=== PATIENT | male | born 1970 | race American Indian/Alaskan Native ===

== ENCOUNTER 2020-10-19 10:40 | Emergency (ER) | payer SELFPAY ==
[2020-10-19] MEDS ORDERED: D5W/0.45% NACL 1,000 ML IV SCH (11:00)
--- NOTE | 2020-10-19 11:11 | Emergency Department Report ---
ED General Adult HPI - General Chief complaint: Seizure Stated complaint: SEIZURE PUI?: No Time Seen by Provider: 10/19/20 10:48 Source: patient, EMS (Verbal report received from emergency medical services. EMS documentation not available at time of chart dictation ), RN notes reviewed Mode of arrival: Stretcher Limitations: No Limitations, Physical Limitation - History of Present Illness Initial comments: The patient was evaluated in the emergency department for symptoms described in the history of present illness. He/she was evaluated in the context of the global COVID-19 pandemic, which necessitated consideration that the patient might be at risk for infection with the virus that causes COVID-19. Institutional protocols and algorithms that pertain to the evaluation of patients at risk for COVID-19 are in a state of rapid change based on information released by regulatory bodies including the CDC and federal and state organizations. These policies and algorithms were followed during the patient's care in the emergency department. Please note that these policies, procedures and recommendations changed on a rapid basis. The patient is a 50-year-old gentleman. He is not known to myself previously. He has a history of recreational cannabis consumption. He denies chronic medical conditions. He is brought to the hospital by emergency medical services. The patient states "I do not remember what happened." The patient states he is not having any physical pain. As per verbal report from emergency medical services, patient had a witnessed nontraumatic convulsive event while in bed with his significant other. Apparently, the patient had shaking all over, for an uncertain period of time. EMS states the patient was somewhat hypertensive in the field, with a normal Accu-Chek. Patient states he has never had a seizure or convulsion before that he is aware of. He denies headache, neck pain, chest pain, abdominal pain, shortness of breath, urinary symptoms, focal extremity weakness/numbness, loss of taste or loss of smell. There is no significant family history for convulsions or seizures or epilepsy that he is aware of. He does not take prescription medications currently he feels like he is back to his baseline. -: Sudden Consistency: now resolved Improves with: none Worsens with: none - Related Data Allergies Allergy/AdvReac Type Severity Reaction Status Date / Time No Known Allergies Allergy Unverified 10/19/20 11:00 ED Review of Systems ROS: Stated complaint: SEIZURE Other details as noted in HPI Constitutional: denies: diaphoresis Eyes: denies: eye discharge, vision change ENT: other (Patient reports that he bit his tongue). denies: congestion Respiratory: denies: cough, shortness of breath Cardiovascular: denies: chest pain, syncope Gastrointestinal: denies: abdominal pain, nausea, vomiting, hematemesis, melena, hematochezia Genitourinary: denies: dysuria Musculoskeletal: myalgia Skin: denies: lesions Neurological: confusion (Initially postictal confusion) ED Physical Exam - General Limitations: No Limitations General appearance: alert, in no apparent distress - Head Head exam: Present: atraumatic, normocephalic - Eye Eye exam: Present: normal appearance, PERRL, EOMI, other (Visual acuity intact to finger counting, color perception, reading at a close distance). Absent: nystagmus - ENT ENT exam: Present: normal exam, normal orophraynx, mucous membranes moist, normal external ear exam, other - Neck Neck exam: Present: normal inspection, full ROM. Absent: tenderness, meningismus - Respiratory Respiratory exam: Present: normal lung sounds bilaterally. Absent: respiratory distress, wheezes, rales, rhonchi, stridor, chest wall tenderness - Cardiovascular Cardiovascular Exam: Present: regular rate, normal rhythm, normal heart sounds. Absent: bradycardia, tachycardia, irregular rhythm, systolic murmur, diastolic murmur, rubs, gallop - GI/Abdominal GI/Abdominal exam: Present: soft, normal bowel sounds. Absent: distended, tenderness, guarding, rebound, rigid, pulsatile mass - Rectal Rectal exam: Present: deferred - Extremities Exam Extremities exam: Present: normal inspection, full ROM, other (2+ pulses noted in the bilateral upper and lower extremities. There is no palpable cord. negative Homans sign. Muscular compartments are soft. The pelvis is stable.). Absent: pedal edema, calf tenderness - Back Exam Back exam: Present: normal inspection, full ROM. Absent: tenderness, CVA tenderness (R), CVA tenderness (L), paraspinal tenderness, vertebral tenderness - Neurological Exam Neurological exam: Present: alert, oriented X3, other (No facial droop. Tongue midline. Extraocular movements intact bilaterally. Facial sensation intact to light touch in V1, V2, V3 distribution bilaterally. 5 and a 5 strength in 4 extremities. Sensation intact to light touch in 4 extremities.). Absent: motor sensory deficit - Psychiatric Psychiatric exam: Present: normal affect, normal mood - Skin Skin exam: Present: warm, dry, intact, normal color. Absent: rash ED Course Vital Signs 10/19/20 10/19/20 10/19/20 10:56 11:10 11:40 Temperature 98.9 F Pulse Rate 97 H 70 Respiratory 16 21 19 Rate Blood Pressure 144/90 123/72 [Left] O2 Sat by Pulse 95 100 95 Oximetry - Reevaluation(s) Reevaluation #1: 10/19/20 11:15 Differential diagnosis, including but not limited to: Seizure, electrolyte derangement, cardiac conduction abnormality, intracranial lesion, adverse effect of drug Assessment and plan: 50-year-old gentleman, who is clinically sober at this time, with a GCS of 15, nonfocal motor examination, with first lifetime convulsive event/seizure/other. Place patient on playground monitor, obtain noncontrast CT scan of the brain, appropriate laboratory studies EKG, provide supportive care, and reassess. Suspect that patient experiencing adverse event from cannabis consumption. Reevaluation #2: 10/19/20 13:26 Patient sleeping comfortably at this time, and in no acute distress. Hyerglycemia reviewed and appreciated. Patient also has glucosuria. Patient may have a component of undiagnosed diabetes. Outpatient follow-up for this, diet lifestyle modifications. Chemistry reviewed and appreciated, decreased CO2 likely secondary to convulsive event. Patient will be given fluids and insulin, we will recheck a basic metabolic panel. Neurology consultation pending at this time. Suspect that patient had convulsive event, likely secondary to cannabis consumption. 10/19/20 13:59 Laboratory studies reviewed and appreciated. Neurology recommendations are reviewed and appreciated. They have recommended admission to the hospital for echocardiogram, to evaluate for cardiogenic syncope, and MRI. It is also recommended that anticonvulsive therapy may be deferred at this time. Doubt cardiogenic syncope, patient low risk by Malagasy syncope rule: 0 points Malagasy Syncope Risk Score Low risk 1.9% risk of 30-day serious adverse event Case is presented to the hospital physician, Dr. Castrejon for further management. Patient is amenable to admission. 10/19/20 14:04 ED Medical Decision Making - Lab Data Result diagrams: 10/19/20 11:11 10/19/20 11:11 Vital Signs 10/19/20 10:56 Temperature 98.9 F Pulse Rate 97 H Respiratory 16 Rate Blood Pressure 144/90 [Left] O2 Sat by Pulse 95 Oximetry - EKG Data -: EKG Interpreted by Me EKG shows normal: sinus rhythm Rate: normal - EKG Data When compared to previous EKG there are: previous EKG unavailable 10/19/20 11:26 Sinus rhythm, 67 bpm. Normal axis, normal intervals, motion artifact V2. Abnormal EKG. Not a STEMI. No prior for comparison. - Radiology Data Radiology results: pending, report reviewed, image reviewed Noncontrast CT scan of the brain negative for acute findings. Critical care attestation.: If time is entered above; I have spent that time in minutes in the direct care of this critically ill patient, excluding procedure time. ED Disposition Clinical Impression: Hyperglycemia, Marijuana use, History of convulsions Disposition: OP ADMIT IP TO THIS HOSP Is pt being admited?: Yes Condition: Good Instructions: Preventing Type 2 Diabetes Mellitus, Cannabis Use Disorder, Hyperglycemia, [id number], Seizure, Adult Additional Instructions: Do not drive or operate motor vehicles for 6 months, until cleared to do so by a primary care doctor or neurologist. Recommend immediate discontinuation of marijuana consumption, tobacco consumption, alcohol consumption. Patient found to have elevated blood sugar levels today, suspicious for diabetes. First-line treatment for diabetes will be diet lifestyle modification. Therefore, increase water consumption to 6 cups of water per day, avoid consumption of carbohydrates, sugar, processed foods. Eat plenty of fiber, vegetables and lean protein. Follow-up with your primary care doctor within the next week. Follow-up with a neurologist within the next week. Long-term complications of uncontrolled diabetes include stroke, heart attack, disability, wound, blindness, loss of quality of life. Please return to the emergency room right away with new pain, worsened pain, migration of pain, projectile vomiting, change in mental status, confusion, inability to tolerate liquid feeds, new, worsened or different symptoms not present on the initial emergency room evaluation. Referrals: MAXIMILIANO HADLEY MD [Primary Care Provider] - 3-5 Days STUART AGUSTIN MD [Staff Physician] - 3-5 Days LILLIAN NOLEN MD [Referring] - 3-5 Days [facility] [Provider Group] - 3-5 Days
[2020-10-19 11:25] LABS: Hemoglobin 15.6 gm/dl (11.8-15.2)
[2020-10-19 11:50] LABS: Bilirubin,Urine NEG (Negative); Blood,Urine MOD (Negative); Color,Urine Straw (Yellow); Protein,Urine >500 mg/dL (Negative); Urobilinogen,Urine < 2.0 mg/dL (<2.0); WBC,Urine < 1.0 /HPF (0.0-6.0)
[2020-10-19 12:32] LABS: Amphetamine Screen,Urine Negative; Benzodiazepines Screen,Urine Negative; Cocaine Screen,Urine Negative; Methadone Screen,Urine Negative; Opiate Screen,Urine Negative
[2020-10-19 12:33] LABS: Alanine Aminotransferase 25 units/L (7-56); Albumin 4.8 g/dL (3.9-5); BUN/Creatinine Ratio 8; Blood Urea Nitrogen 10 mg/dL (9-20); Calcium 9.6 mg/dL (8.4-10.2); Hemolysis Index 17
[2020-10-19] MEDS ORDERED: INSULIN REGULAR, HUMAN 100 UNITS/1 ML IV ONE (12:38)
[2020-10-19] MEDS ORDERED: LACTATED RINGERS 1,000 ML IV ONE (12:43)
[2020-10-19 12:52] LABS: Cannabinoid Screen,Urine PRESUMPTIVE POSITIVE
--- NOTE | 2020-10-19 13:08 | Cat Scan Report ---
CT head/brain wo con INDICATION / CLINICAL INFORMATION: 50 years Male; first time sz. TECHNIQUE: Routine CT head without contrast. All CT scans at this location are performed using CT dos e reduction for ALARA by means of automated exposure control. COMPARISON: None. FINDINGS: BRAIN / INTRACRANIAL CONTENTS: No acute hemorrhage, mass effect, midline shift, hydrocephalus, or acu te, large territorial infarct. No signs of significant atrophy or chronic infarct. No significant whi te matter abnormality seen. CRANIOCERVICAL JUNCTION: No significant abnormality. ORBITS: No significant abnormality of visualized orbits. SINUSES / MASTOIDS: Visualized paranasal sinuses and mastoid air cells are essentially clear. ADDITIONAL FINDINGS: None. IMPRESSION: 1. No focal mass, hemorrhage, hydrocephalus, or acute, large territorial infarct. Signer Name: Andriy Cuello MD, III Signed: 10/19/2020 1:04 PM Workstation Name: [id number]
--- NOTE | 2020-10-19 13:59 | Emergency Department Report ---
HPI - General Chief Complaint: Seizure PUI?: No Time Seen by Provider: 10/19/20 10:48 - HPI HPI: [facility] Date of Service: 10/19/2020 12:58:26 Impression: G93.49 - Encephalopathy Multifactorial Comments/Sign-Out: Pt is morbidly obese, she is on a non breather currently, she is encephalopathic and generally weak. The face has a ? drop. Metrics: Last Known Well: 10/19/2020 08:00:58 [facility] Notification Time: 10/19/2020 12:57:58 Arrival Time: 10/19/2020 13:02:24 Stamp Time: 10/19/2020 12:58:26 Time First Login Attempt: 10/19/2020 13:00:28 Symptoms: AMS NIHSS Start Assessment Time: 10/19/2020 13:18:11 Patient is not a candidate for Alteplase/Activase. Alteplase Medical Decision: 10/19/2020 13:18:15 Patient was not deemed candidate for Alteplase/Activase thrombolytics because of Last Well Known Above 4.[address] head showed no acute hemorrhage or acute core infarct. Lower Likelihood of Large Vessel Occlusion but Following Stat Studies are Re commended CTA Head and Neck. CT Perfusion. Advanced Imaging to be Reviewed by ED Provider and FRANCO. Radiologist was not called back for review of advanced imaging because NA ED Physician notified of diagnostic impression and management plan on 10/19/2020 13:29:08 Our recommendations are outlined below. Recommendations: Activate Stroke Protocol Admission/Order Set Stroke/Telemetry Floor Neuro Checks Bedside Swallow Eval DVT Prophylaxis IV Fluids, Normal Saline Head of Bed 30 Degrees Euglycemia and Avoid Hyperthermia (PRN Acetaminophen) Cont Eliquis Recommended Scan: MRI Head Without Contrast MRA Head and Neck Without Contrast When Available - Stroke Protocol Echocardiogram - Transthoracic Echocardiogram Lipid Panel to Be Obtained, if Not Done in the Last 30 Days Therapies: Physical Therapy, Occupational Therapy, Speech Therapy Assessment When Applicable Dysphaghia Screen: Swallow Evaluation, Bedside NPO Until Swallow Evaluation Disposition: Neurology Follow Up Recommended Sign Out: Discussed with Emergency Department Provider History of Present Illness: Patient is a 66 year old Female. Patient was brought by EMS for symptoms of AMS Patient seen in ED, pt in transit at time of initial login Information obtained from EMS h/o Sz,Pt is usually on a nasal canulla, morbid obesity Chronology: LKW: 8:00 am pt is generally AAOx3 She was found to be altered ~ 8:00 am EMS was called On arrival EMS noted a ? left facial droop, and ?Gaze to rt pt is on Pain meds, last dose at this stage is not known On interview, pt not oriented, she is able to identify some objects and she is able to read Medications:topamax, eliquis BP:108/56 P:62 Blood glucose:126 203 kg Last seen normal was beyond 4.5 hours of presentation. There is no history of hemorrhagic complications or intracranial hemorrhage. There is no history of Recent Anticoagulants. There is no history of recent major surgery. There is no history of recent stroke. Past Medical History: Hypertension Examination: BP(108/56), Pulse(62), Blood Glucose(126) 1A: Level of Consciousness - Alert; keenly responsive + 0 1B: Ask Month and Age - Could Not Answer Either Question Correctly + 2 1C: Blink Eyes & Squeeze Hands - Performs Both Tasks + 0 2: Test Horizontal Extraocular Movements - Normal + 0 3: Test Visual [place] - No Visual Loss + 0 4: Test Facial Palsy (Use Grimace if Obtunded) - Minor paralysis (flat nasolabial fold, smile asymmetry) + 1 5A: Test Left Arm Motor Drift - Drift, but doesn't hit bed + 1 5B: Test Right Arm Motor Drift - Drift, but doesn't hit bed + 1 6A: Test Left Leg Motor Drift - Some Effort Against [place] + 2 6B: Test Right Leg Motor Drift - Some Effort Against [place] + 2 7: Test Limb Ataxia (FNF/Heel-Zuluaga) - No Ataxia + 0 8: Test Sensation - Normal; No sensory loss + 0 9: Test Language/Aphasia - Mild-Moderate Aphasia: Some Obvious Changes, Without Significant Limitation + 1 10: Test Dysarthria - Normal + 0 11: Test Extinction/Inattention - No abnormality + 0 NIHSS Score: 10 Patient/Family was informed the Neurology Consult would occur via TeleHealth consult by way of interactive audio and video telecommunications and consented to receiving care in this manner. Due to the immediate potential for life-threatening deterioration due to underlying acute neurologic illness, I spent 35 minutes providing critical care. This time includes time for face to face visit via telemedicine, review of medical records, imaging studies and discussion of findings with providers, the patient and/or family. Dr Cassandra Ram [facility] Case [id number] ED Past Medical Hx - Past Medical History Previous Medical History?: No - Surgical History Past Surgical History?: No ED Review of Systems ROS: Stated complaint: SEIZURE Other details as noted in HPI Constitutional: denies: diaphoresis Eyes: denies: eye discharge, vision change ENT: other (Patient reports that he bit his tongue). denies: congestion Respiratory: denies: cough, shortness of breath Cardiovascular: denies: chest pain, syncope Gastrointestinal: denies: abdominal pain, nausea, vomiting, hematemesis, melena, hematochezia Genitourinary: denies: dysuria Musculoskeletal: myalgia Skin: denies: lesions Neurological: confusion (Initially postictal confusion) Physical Exam - Physical Exam Vital Signs: Vital Signs 10/19/20 10/19/20 10/19/20 10:56 11:10 11:40 Temperature 98.9 F Pulse Rate 97 H 70 Respiratory 16 21 19 Rate Blood Pressure 144/90 123/72 [Left] O2 Sat by Pulse 95 100 95 Oximetry ED Course Vital Signs 10/19/20 10/19/20 10/19/20 10:56 11:10 11:40 Temperature 98.9 F Pulse Rate 97 H 70 Respiratory 16 21 19 Rate Blood Pressure 144/90 123/72 [Left] O2 Sat by Pulse 95 100 95 Oximetry ED Medical Decision Making - Lab Data Result diagrams: 10/19/20 11:11 10/19/20 11:11 Critical care attestation.: If time is entered above; I have spent that time in minutes in the direct care of this critically ill patient, excluding procedure time. ED Disposition Clinical Impression: Marijuana use Disposition: OP ADMIT IP TO THIS HOSP Is pt being admited?: Yes Condition: Good Instructions: Preventing Type 2 Diabetes Mellitus, Cannabis Use Disorder, Hyperglycemia, [id number], Seizure, Adult Additional Instructions: Do not drive or operate motor vehicles for 6 months, until cleared to do so by a primary care doctor or neurologist. Recommend immediate discontinuation of marijuana consumption, tobacco consumption, alcohol consumption. Patient found to have elevated blood sugar levels today, suspicious for diabetes. First-line treatment for diabetes will be diet lifestyle modification. Therefore, increase water consumption to 6 cups of water per day, avoid consumption of carbohydrates, sugar, processed foods. Eat plenty of fiber, vegetables and lean protein. Follow-up with your primary care doctor within the next week. Follow-up with a neurologist within the next week. Long-term complications of uncontrolled diabetes include stroke, heart attack, disability, wound, blindness, loss of quality of life. Please return to the emergency room right away with new pain, worsened pain, migration of pain, projectile vomiting, change in mental status, confusion, inability to tolerate liquid feeds, new, worsened or different symptoms not present on the initial emergency room evaluation. Referrals: [facility] [Provider Group] - 3-5 Days STUART AGUSTIN MD [Staff Physician] - 3-5 Days LILLIAN NOLEN MD [Referring] - 3-5 Days PRIMARY MD JOMAR [Primary Care Provider] - 3-5 Days
[2020-10-19] MEDS ORDERED: levETIRAcetam 500 MG TAB PO ONE (14:30)
[2020-10-19 14:46] VITALS: BP 157/100
== END 2020-10-19 14:46 | disposition home or self-care (01) ==
LOC: ED 10:40
DX: R73.9 Hyperglycemia, unspecified (principal); F12.10 Cannabis abuse, uncomplicated; R55 Syncope and collapse
CPT/HCPCS: 36415; 70450; 80053; 80307; 81001; 82550; 84484; 85014; 85018; 85049; 93005; 96361; 96374; 99285; J7120; 80320; G0480; J1815